=== PATIENT | female | born 1980 | race African-American/Black ===

== ENCOUNTER 2021-11-12 22:27 | Emergency (ER) | payer OTHER ==
[2021-11-12 22:39] VITALS: BP 150/89; PULSE 89; RESP 20; TEMP 98.2; BMI 36.6
[2021-11-12] MEDS ORDERED: DIPHTH,PERTUSS(ACELL),TET 0.5 ML DISP.SYRIN IM ONE ×2 (22:50→23:15)
== END 2021-11-12 23:16 | disposition home or self-care (01) ==
LOC: JERFT 22:27 → JER 22:27 → JERFT 23:16
DX: S69.91XA Unspecified injury of right wrist, hand and finger(s), initial encounter (principal)
CPT/HCPCS: 90715; 99283-25

== ENCOUNTER 2023-01-28 20:01 | Emergency (ER) | payer OTHER ==
[2023-01-28 20:08] VITALS: BP 148/98; PULSE 85; RESP 20; TEMP 98.9; BMI 36.8
== END 2023-01-28 20:26 | disposition home or self-care (01) ==
LOC: JER 20:01 → JERFT 20:01
DX: R53.83 Other fatigue (principal)
CPT/HCPCS: 99281-25